=== PATIENT | female | born 2000 | race Caucasian/White ===

== ENCOUNTER 2020-05-20 12:12 | Emergency (ER) | payer BC | END 2020-05-20 13:07 | disposition home or self-care (01) | LOC: ER 12:13 | DX: R09.89 Other specified symptoms and signs involving the circulatory and respiratory systems (principal); Z20.828 Contact with and (suspected) exposure to other viral communicable diseases; F12.90 Cannabis use, unspecified, uncomplicated | CPT/HCPCS: 36415; 87635; 99283 ==